=== PATIENT | male | born 1980 | race Caucasian/White ===

== ENCOUNTER 2017-02-15 06:00 | Inpatient (IN) | payer OTHER ==
--- NOTE | 2016-02-17 14:30 | NUR ---
ANNIE CHAVIS NO ORDER CHANGED.
[2017-02-15] VITALS (8 sets, daily range): BP systolic 91–155; BP diastolic 32–77
[~2017-02-15] VITALS: Ht 170.2 cm; Wt 113.9 kg
[~2017-02-15 06:00] MED LIST: ASPIRIN81 M1 PO; COREG3.125 MG PO; DIGOXIN0.125 MG PO; LASIX40 MG PO; SPIRONOLACTONE25 M1 PO; ZESTRIL10 MG PO
--- NOTE | 2017-02-15 06:00 | NUR ---
Dr. Panda at bedside to evalute patient.
--- NOTE | 2017-02-15 06:00 | NUR ---
Patient was BIBA at this time and taken to bed 03 via gurney per EMS.
[2017-02-15] MEDS ORDERED: AMIODARONE 150 MG/3 ML VIAL IV ONE (06:19)
--- NOTE | 2017-02-15 06:31 | NUR ---
BIB PARAMEDICS, RUN #152 FOR HR>200, ADENOSINE GIVEN IN THE FIELD OF 6MG, 12MG AND 12MG. 400NS GIVEN IN THE FIELD. DEFIB OF 100J IN THE FIELD AND 100 J ONE IN THE ER. HR IN THE FIELD RANGED FROM 160 TO 260. ONCE IN THE ER, HR WENT RANGE FROM 200 TO 110 RANGE. PT HAS HX OF HTN, ENLARGED HEART AND SVT. PT DENIES N/V/D; SKIN IS PINK/WARM/DRY; AAOX4 WITH EVEN AND STEADY GAIT; LUNGS CLEAR BL; PT DENIES ANY FEVER, SOB, OR COUGH AT THIS TIME; PATIENT STATES PAIN OF 8/10 AT THIS TIME; PATIENT POSITIONED FOR COMFORT; HOB ELEVATED; BEDRAILS UP X2; BED DOWN. ER MD MADE AWARE OF PT STATUS.
[2017-02-15] MEDS ORDERED: AMIODARONE 150 MG in DEXTROSE 5% 100 ML IV ONE (06:35)
[2017-02-15] MEDS ORDERED: COUMADIN2.5 MG PO (06:39)
[2017-02-15] MEDS ORDERED: LASIX40 MG PO (06:39)
[2017-02-15] MEDS ORDERED: COREG25 MG PO (06:39)
[2017-02-15] MEDS ORDERED: LANOXIN0.125 MG PO (06:39)
[2017-02-15] MEDS ORDERED: FUROSEMIDE 40 MG/4 ML VIAL IVP SCH (07:44)
[2017-02-15] MEDS ORDERED: ONDANSETRON 4 MG/2 ML VIAL IVP PRN (07:45)
[2017-02-15] MEDS ORDERED: MORPHINE SULFATE 4 MG/ML SYR IVP PRN (07:45)
[2017-02-15] MEDS ORDERED: MORPHINE SULFATE 2 MG/ML SYR IVP PRN (07:45)
[2017-02-15] MEDS ORDERED: FUROSEMIDE 40 MG/4 ML VIAL IVP ONE (07:48)
--- NOTE | 2017-02-15 08:00 | NUR ---
Patient appears to be resting comfortably in bed. Vital Signs within normal limits. Respirations even and unlabored.
--- NOTE | 2017-02-15 08:15 | NUR ---
AWAITING FOR CARD ROOM MANAGER NURSE PRIOR TO ADMISSION
--- NOTE | 2017-02-15 09:46 | NUR ---
Patient appears to be resting comfortably in bed. Vital Signs within normal limits. Respirations even and unlabored.
--- NOTE | 2017-02-15 10:04 | NUR ---
Patient will be admitted to care of DR LEUNG. Admited to ICU. Will go to room ICU3. Belongings list completed. Report to MATT.
--- NOTE | 2017-02-15 10:15 | NUR ---
ADMITTED A 36 YO MALE FROM HOME WITH CO DEFIBRILLATOR DELIVERING SHOCK AT HOME SO CALLED 911.RIGHT NOW NO CO CHEST PAIN NOR SHORTNESS OF BREATH.ON ROOM AIR SATURATING 94 PERCENT.NSR ON THE MONITOR.RIGHT WRIST 18 GAUGE SALINE LOCK FLUSHABLE AND PATENT.NO SKIN BREAKDOWN.OTILIA AT THE BEDSIDE.WILL MONITOR.
[2017-02-15] MEDS: DIGOXIN 0.125 MG TAB PO SCH (10:29)
[2017-02-15] MEDS: CARVEDILOL 12.5 MG TAB PO SCH (10:30)
[2017-02-15] MEDS: FUROSEMIDE 20 MG/2 ML VIAL IVP SCH ×3 (10:31→16:22)
[2017-02-15] MEDS ORDERED: METOPROLOL 5 MG/5 ML VIAL IVP PRN (11:45)
--- NOTE | 2017-02-15 14:00 | NUR ---
BILATERAL SCD APPLIED.
--- NOTE | 2017-02-15 14:54 | NUR ---
CM NOTE INITIAL REVIEW FAXED TO [facility] / FAX# [phone]
--- NOTE | 2017-02-15 15:20 | NUR ---
DR BURNETTE PAGED REGARDING MAGNESIUM LEVEL 1.2
--- NOTE | 2017-02-15 15:26 | NUR ---
PT IS COMFORTABLE.NO CO PAIN NOR SHORTNESS OF BREATH.NSR ON THE MONITOR.
[2017-02-15] MEDS ORDERED: MAG SULF 2000 MG/WATER PREMIX 50 ML IV SCH (15:37)
--- NOTE | 2017-02-15 15:45 | NUR ---
CALLED [employer] TO REQUEST TO SEND STATISTICAL FINANCIAL ANALYST TO CHECK PACEMAKER/DEFIBRILLATOR.
[2017-02-15] MEDS ORDERED: WARFARIN 2.5 MG TAB PO SCH (17:00)
--- NOTE | 2017-02-15 17:30 | NUR ---
DR BURNETTE AWARE THAT JULIANE CADENA DID NOT SEE THE PATIENT YET.PER MD TALKED TO DR CARDOZO
--- NOTE | 2017-02-15 19:00 | NUR ---
ENDORSED TO QUILL CLEANER THAT [employer] INTERROGATOR MACHINE IS AVAILABLE AND NEED TO CALL [place] WITH NUMBER [phone] TO GUIDE THEM THRU TO CHECK THE DEFIBRILLATOR.
--- NOTE | 2017-02-15 19:29 | NUR ---
RECEIVED REPORT FROM ARTHUR BUTT. PATIENT IS ALERT, AWAKE, AND ORIENTED. PATIENT IS RESTING IN BED WATCHING TV. NO SIGNS OF SOB OR DISTRESS NOTED. VITALS WNL AND PATIENT DENIES PAIN OR DISCOMFORT AT THIS TIME. THERE IS A #18 IN THE PATIENT'S RIGHT WRIST SALINE LOCK. SITE IS DRY AND INTACT. EXPLAINED INDICATIONS AND BENEFITS OF SCDS FOR VTE PROPHYLAXIS. PATIENT VERBALIZED UNDERSTANDING. SCDS IN PLACE. EXPLAINED PLAN OF CARE TO INCLUDE VITALS Q2H, MONITORING, AND SCHEDULED MEDICATION ADMINISTRATION. PATIENT VERBALIZED UNDERSTANDING. HOB AT 30 DEGREES WITH BED IN LOW POSITION FOR SAFETY MEASURES. WILL CONTINUE TO MONITOR PATIENT.
[2017-02-15] MEDS: AMIODARONE 200 MG TAB PO SCH (20:59)
--- NOTE | 2017-02-15 21:00 | NUR ---
TOLERATED DUE MEDICATION. NO SIGNS OF SOB NOTED. HOB AT 30 DEGREES WITH BED IN LOW POSITION. CONTINUE TO MONITOR PATIENT.
--- NOTE | 2017-02-15 23:19 | NUR ---
PATIENT RESTING QUIETLY IN BED WATCHING TV. NO SIGNS OF SOB OR DISTRESS NOTED. PATIENT'S NEEDS MET AT THIS TIME. CONTINUE TO MONITOR PATIENT.
[2017-02-16] VITALS (10 sets, daily range): BP systolic 101–132; BP diastolic 40–84
--- NOTE | 2017-02-16 02:26 | NUR ---
PATIENT SLEEPING IN BED. BREATHING IS EVEN AND UNLABORED. CONTINUE TO MONITOR PATIENT.
--- NOTE | 2017-02-16 05:26 | NUR ---
MAJOR ACCOUNT REPRESENTATIVE AT BEDSIDE FOR SCHEDULED LAB DRAWS.
--- NOTE | 2017-02-16 07:10 | NUR ---
PATIENT IN STABLE CONDITION. ALL NEEDS ATTENDED TO DURING SHIFT. ENDORSED CONTINUITY OF CARE TO SUCHADA RN.
--- NOTE | 2017-02-16 07:15 | NUR ---
RECEIVE REPORT FROM HOLLAND BRITTON PT IS SITTING IN BED , AAOX4 SKIN DRY WARM TO TOUCH COLOR NORMAL AND SKIN IS INTACT. HE IS ON ROOM AIR O2 SAT 90% , IV SITE HE HAS # 19 ON RT WRIST THE SITE IS DRY AND INTACT DENIED PAIN AT THE TIME.
[2017-02-16] MEDS: FUROSEMIDE 20 MG/2 ML VIAL IVP SCH ×2 (08:15→17:43)
--- NOTE | 2017-02-16 08:15 | NUR ---
RESTING COMFORTABLE DENIED CHEST PAIN AND .
--- NOTE | 2017-02-16 08:15 | NUR ---
C/O FEELING HEART PALPITATION. PATIENT DENIES PAIN OR S.O.B.PT. IS DUE FOR HIS CARDIAC MEDICATION.
[2017-02-16] MEDS: CARVEDILOL 12.5 MG TAB PO SCH ×2 (08:16→20:48)
[2017-02-16] MEDS: AMIODARONE 200 MG TAB PO SCH ×2 (08:16→20:48)
[2017-02-16] MEDS: DIGOXIN 0.125 MG TAB PO SCH (08:16)
--- NOTE | 2017-02-16 08:16 | NUR ---
MORNING MED GIVEN.
[2017-02-16] MEDS ORDERED: PROBIOTIC SCREEN 1 EA MISC MC PRN (10:20)
[2017-02-16] MEDS ORDERED: CARVEDILOL12.5 MG PO (11:18)
[2017-02-16] MEDS ORDERED: PACERONE200 M1 PO (11:18)
--- NOTE | 2017-02-16 11:18 | NUR ---
SEEN BY DR. LEUNG AT BEDSIDE, ORDER RECEIVED.
--- NOTE | 2017-02-16 11:57 | NUR ---
FAXED CONCURRENT REVIEW TO [facility] [phone] PHONE [phone] TRACEY
--- NOTE | 2017-02-16 12:50 | NUR ---
SEEN BY DR. LEUNG AT BEDSIDE.ORDER RECEIVED.
--- NOTE | 2017-02-16 14:30 | NUR ---
CALL TELE REPORT GIVE EUNICE BUTT.
--- NOTE | 2017-02-16 14:30 | NUR ---
SEEN BY DR. CHAVIS , NO ORDER CHANGED.
--- NOTE | 2017-02-16 14:52 | NUR ---
PT TRANSFER TO RM 112A IN BED HIS CONDITION IS STABLEDURING TRANSFER,
--- NOTE | 2017-02-16 15:07 | NUR ---
PATIENT ARRIVED TO THE UNIT FROM ICU. PATIENT AWAKE, ALERT, ORIENTED AND AMBULATORY. NO S/S OF DISTRESS NOTED. NO C/O OF PAIN. PATIENT PLACED ON TELE MONITORING. BED LOWERED WITH CALL LIGHT WITHIN REACH. WILL CONTINUE TO MONITOR
--- NOTE | 2017-02-16 16:30 | NUR ---
PATIENT AMBULATED AROUND THE UNIT NO S/S OF DISTRESS NOTED
--- NOTE | 2017-02-16 19:30 | NUR ---
PATIENT REPORT GIVEN AT BEDSIDE. PATIENT ENDORSED IN STABLE CONDITION
--- NOTE | 2017-02-16 19:45 | NUR ---
RECEIVED PT IN STABLE CONDITION FROM AM NURSE. AWAKE,ALERT AND ORIENTED X4. ON TELE MONITOR. NO DISTRESS NOTED. WITH FAMILY AT BEDSIDE. HL ON THE RT WRIST #18. CLEAR AND PATENT. PLAN OF CARE DISCUSSED AND VERBALIZED UNDERSTANDING. CALL LIGHT WITHIN EASY REACH.WILL CONTINUE TO MONITOR.
--- NOTE | 2017-02-16 21:00 | NUR ---
PT ASLEEP. NO S/S OF ANY DISCOMFORT NOR PAIN NOTED.
--- NOTE | 2017-02-17 02:52 | NUR ---
PT AWAKE, C/O NAUSEA AND VOMITING. MEDICATED ORDERED.
[2017-02-17 04:20] VITALS: BP 124/57
--- NOTE | 2017-02-17 05:00 | NUR ---
SLEEPING WELL AT THIS TIME. NO S/S OF ANY DISCOMFORT NOTED.
--- NOTE | 2017-02-17 07:25 | NUR ---
RECEIVED REPORT FROM NIGHT NURSE. PT IS AAOX4, ON ROOM AIR, IV TO TIGHT WRIST SALINE LOCK PATENT AND INTACT. SKIN INTACT. INITIAL ASSESSMENT COMPLETED. REVIEWED PLAN OF CARE WITH PT, PT VERBALIZED UNDERSTANDING. ALL SAFETY PRECAUTIONS MET. CALL LIGHT WITHIN REACH. WILL CONTINUE TO MONITOR.
--- NOTE | 2017-02-17 07:30 | NUR ---
ENDORSED PT IN STABLE CONDITION TO AM NURSE.
[2017-02-17 07:59] VITALS: BP 119/57
[2017-02-17] MEDS: FUROSEMIDE 20 MG/2 ML VIAL IVP SCH (09:58)
[2017-02-17] MEDS: AMIODARONE 200 MG TAB PO SCH (09:59)
[2017-02-17] MEDS: DIGOXIN 0.125 MG TAB PO SCH (09:59)
[2017-02-17] MEDS: CARVEDILOL 12.5 MG TAB PO SCH (09:59)
--- NOTE | 2017-02-17 10:00 | NUR ---
DUE MEDICATIONS GIVEN. PT TOLERATED WELL. CURRENTLY RESTING IN BED. ALL NEEDS MET CALL LIGHT WITHIN [facility]. WILL CONTINUE TO MONITOR.
[2017-02-17] MEDS ORDERED: XARELTO15 MG PO (10:59)
[2017-02-17 11:52] VITALS: BP 107/57
--- NOTE | 2017-02-17 12:11 | NUR ---
CM NOTE FAXED CONCURRENT REVIEW TO [facility] [phone] PHONE [phone] [phone] CEIHP
--- NOTE | 2017-02-17 12:42 | NUR ---
DISCUSSED DISCHARGE PLAN WITH PT, PT VERBALIZED UNDERSTANDING. ALL NEEDS MET. CALL LIGHT WITHIN REACH.
--- NOTE | 2017-02-17 13:00 | NUR ---
PT SIGNED ALL DISCHARGE PAPERWORK, DISCHARGE INSTRUCTION, EDUCATION, PRESCRIPTION GIVEN. FOLLOW UP INFORMATION GIVEN PT VERBALIZED UNDERSTANDING. IV REMOVED TIP INTACT. ALL PERSONAL BELONGINGS WITH PT. AT BEDSIDE.
--- NOTE | 2017-02-17 13:10 | NUR ---
PT WAS WALKED OUT TO FRONT LOBBY IN STABLE CONDITIONS.
== END 2017-02-17 13:10 | disposition home or self-care (01) | DRG 201 ==
LOC: MED 06:00 → MIC 07:49 → MTU 02-16 14:52
PROVIDERS: ADMIT Internal Medicine Pulmonary Disease; ATTEND Internal Medicine Pulmonary Disease
PROC: 5A2204Z Restoration of Cardiac Rhythm, Single (ICD-10-PCS; principal; 2017-02-16)
DX: I47.1 Supraventricular tachycardia (principal); J96.01 Acute respiratory failure with hypoxia; I49.01 Ventricular fibrillation; E66.9 Obesity, unspecified; I11.0 Hypertensive heart disease with heart failure; I50.23 Acute on chronic systolic (congestive) heart failure; I42.8 Other cardiomyopathies; I47.2 Ventricular tachycardia; Z86.718 Personal history of other venous thrombosis and embolism; Z95.810 Presence of automatic (implantable) cardiac defibrillator; Z79.01 Long term (current) use of anticoagulants; Z68.39 Body mass index [BMI] 39.0-39.9, adult

== ENCOUNTER 2017-02-17 22:38 | Emergency (ER) | payer OTHER ==
[~2017-02-17] VITALS: Ht 170.2 cm; Wt 113.9 kg
[~2017-02-17 22:38] MED LIST changes: +AMIO200T10 PO; -ASPIRIN81 M1 PO; +CARV12.52 PO; -COREG3.125 MG PO; +DIGO0.121 PO; -DIGOXIN0.125 MG PO; +FURO-570 PO; -LASIX40 MG PO; +RIVA15TA1 PO; -SPIRONOLACTONE25 M1 PO; -ZESTRIL10 MG PO
[2017-02-17 22:39] VITALS: BP 152/89
--- NOTE | 2017-02-17 22:52 | NUR ---
Pt upset that we would not take him back immediately after triage to a bed. Pt verbally abusive to staff, as was his . Pt stormed out of ER. PATIENT LEFT WITHOUT BEING SEEN BY DR. Higuera. NO FURTHER CARE PROVIDED FOR PATIENT.
--- NOTE | 2017-02-17 22:53 | NUR ---
Nikita yoon in [facility] - 02/17/17 at 2305 by ANNA Patient to bed .
[2017-02-17] MEDS ORDERED: NITROGLYCERIN 2% 1 GM PKT TP ONE (22:55)
[2017-02-17] MEDS ORDERED: MORPHINE SULFATE 4 MG/ML SYR IVP ONE (22:55)
[2017-02-17] MEDS ORDERED: ASPIRIN 325 MG TAB PO ONE (22:55)
== END 2017-02-17 22:52 | disposition left against medical advice (07) ==
LOC: MED 22:38
DX: R42 Dizziness and giddiness (principal); R53.1 Weakness; Z53.21 Procedure and treatment not carried out due to patient leaving prior to being seen by health care provider
CPT/HCPCS: 99281

== ENCOUNTER 2017-10-11 17:37 | Inpatient (IN) | payer OTHER ==
[~2017-10-11] VITALS: Ht 170.2 cm; Wt 136.1 kg
[2017-10-11 17:39] VITALS: BP 149/72
--- NOTE | 2017-10-11 17:40 | NUR ---
36 M BIBA FROM HOME FOR EVALUATION OF SOB X2 DAYS W/LAST 45 MINUTES BECOMING INCREASINGLY SEVERE; RR ARE TACHYPENIC AND LABORED; PULSE OX=80% ON RA; RT SPEAKING IN ONE WORDED PHRASES; PT WITH PINK FROTHY SPUTUM; PT IS AOX4; ER MD CUELLO BY BEDSIDE; RT BY BEDSIDE; WILL CONTINUE TO MONITOR.
[2017-10-11] MEDS ORDERED: FUROSEMIDE 40 MG/4 ML VIAL IVP ONE ×2 (17:45→18:30)
[2017-10-11] MEDS ORDERED: ALBUTEROL SULFATE/IPRATROPIU 3 ML SOL IH ONE ×2 (17:45)
--- NOTE | 2017-10-11 18:00 | NUR ---
ABG RESULTS GIVEN TO . PHYSICIAN REQUESTS PT BE PLACED ON BIPAP. BIPAP PLACED ON PT. BRAID PATTERN SETTER [facility].
--- NOTE | 2017-10-11 18:24 | NUR ---
LAB BY BEDSIDE
[2017-10-11 18:42] VITALS: BP 139/81
[2017-10-11 18:42] LABS: BASOPHILS # (AUTO) 0.4 K/uL (0.00-0.22); EOSINOPHILS # (AUTO) 0.1 K/uL (0-0.4); HEMATOCRIT 51.8 % (36-52); HEMOGLOBIN 12.9 g/dL (12.0-18.0); LYMPHOCYTES # (AUTO) 0.8 K/uL (2.0-11.5); MEAN CORPUSCULAR HEMOGLOBIN 21 pg (27-31); MEAN CORPUSCULAR HGB CONC 25 g/dL (33-37); MEAN CORPUSCULAR VOLUME 84 fL (80-94); MONOCYTES # (AUTO) 0.8 K/uL (0.8-1.0); NEUTROPHILS # (AUTO) 7.8 K/uL (1.8-7.7); PLATELET COUNT (AUTO) 222 K/uL (140-450); RED BLOOD CELL COUNT(AUTO) 6.19 MIL/uL (4.20-6.10); RED CELL DISTRIBUTION WIDTH 15.1 % (11.6-13.7); WHITE BLOOD COUNT (AUTO) 9.9 K/uL (4.8-10.8)
--- NOTE | 2017-10-11 18:43 | NUR ---
RESP STATUS IMPROVED; PULSE OX=95% ON IPAP; NAD; PT DENIES ANY CP AT THIS TIME. WILL CONTINUE TO MONITOR.
[2017-10-11 18:58] LABS: ANION GAP 15.3 (8-16); CARBON DIOXIDE 24.2 mmol/L (21-32); CREATININE 2.5 mg/dL (0.7-1.3); POTASSIUM 4.5 mmol/L (3.5-5.1)
[2017-10-11 19:03] LABS: TOTAL BILIRUBIN 0.4 mg/dL (0.0-1.0)
[2017-10-11 19:07] LABS: PROTHROMBIN TIME 12.2 secs (10.8-13.4)
--- NOTE | 2017-10-11 19:15 | NUR ---
pt doesn't know frequency, dose on home medication; pt sts he normally takes "digoxin, xeralto, metroplol, Isosorbide, hydrolazine, unknown other bp med"; pt sts will be bringing med list later on.
--- NOTE | 2017-10-11 19:22 | NUR ---
Pt report given to Bettie BUTT. Transfer of care at this time.
--- NOTE | 2017-10-11 20:10 | NUR ---
TRANSFERRED PT TO ICU5 WITH NO INCIDENCE WITH MARIA M BUTT
[2017-10-11 20:12] VITALS: BP 144/79
--- NOTE | 2017-10-11 20:12 | NUR ---
RECEIVED PT TRANSFERRED FORM ER, OBTAINED REPORT AT BEDSIDE, PT IS AAOX4, ABLE TO FOLLOW COMMANDS AND MAKE NEEDS KNOWN, NO S/S OF DISTRESS, CLEAR LUNG SOUNDS, ON BIPAP WITH I/E /, RATE 12, FIO2 100%. DENIES CHEST PAIN, SR WITH PACING RHYTHM, PACEMAKER ON LEFT UPPER CHEST, LARGE ROUND SOFT ABDOMEN WITH ACTIVE BOWEL SOUNDS, NO C/O N/V, CONTINENT WITH B&b'S, ABLE TO MOVE ALL EXTREMITIES, STEADY GAIT. AFEBRILE, SKIN IS INTACT, WARM AND DRY TO TOUCH, PERIPHERAL LINE TO RIGHT WRIST 20GA AND LEFT AC 20GA, PATENT AND SL. VSS, DENIES PAIN A THIS TIME. EXPLAINED POC TO PT AND FAMILY MEMBER, VERBALIZED UNDERSTANDING, HOB ELEVATED TO 30 DEGREES, SAFETY MEASURES IN PLACE, WILL CONTINUE TO MONITOR.
--- NOTE | 2017-10-11 20:21 | NUR ---
Patient will be admitted to care of DR MARTÍNEZ. Admited to TELE . Will go to room 5. Belongings list completed. Report to HAROON . Addendum: 10/12/17 at 0338 by MARGIE PT ADMITED TO ICU BED 5 NOT TELE.
--- NOTE | 2017-10-11 21:00 | NUR ---
PT REFUSED PAIZ CATHETER INSERTION, EXPLAINED THE BENEFIT AND RISK FOR IT, PT STILL REFUSED.
[2017-10-11] MEDS ORDERED: METO100T14 PO (21:58)
[2017-10-11] MEDS ORDERED: DIGO0.121 PO (21:58)
[2017-10-11] MEDS ORDERED: ISOS10TA9 PO (21:58)
[2017-10-11] MEDS ORDERED: AMIO200T2 PO (21:58)
[2017-10-11] MEDS ORDERED: HYDR-3233 PO (21:58)
[2017-10-11] MEDS ORDERED: FURO-570 PO (21:58)
[2017-10-11 22:00] VITALS: BP 119/40
--- NOTE | 2017-10-11 22:17 | NUR ---
ABG RESULTS REPORTED TO DR MARTÍNEZ, BIPAP TO BE CONTINUED AT THIS TIME AND WILL TITRATE FIO2 TOLERATED, WILL CONT TO MONITOR.
[2017-10-11] MEDS ORDERED: METO100T22 PO (22:42)
[2017-10-11 22:50] LABS: APPEARANCE,URINE CLEAR (CLEAR); BILIRUBIN,URINE NEGATIVE (NEGATIVE); BLOOD, URINE NEGATIVE (NEGATIVE); COLOR,URINE YELLOW (YELLOW); LEUKOCYTE ESTERASE ,URINE NEGATIVE (NEGATIVE); NITRITE, URINE NEGATIVE (NEGATIVE); UGLUCOSE NEGATIVE (NEGATIVE)
--- NOTE | 2017-10-11 23:30 | NUR ---
PT REQUESTED TO TAKE A BREAK FROM THE BIPAP, STATES HE'S FEELING BETTER AND CAN BREATHE BETTER, PLACED ON 12 LPM OXYMIZER WITH O2 SAT 93%, TOLERATING WELL, NO RESP DISTRESS OR SOB NOTED AT THIS TIME, HAROON BUTT AWARE, EDUCATED PT TO USE CALL LIGHT, WILL CONTINUE TO MONITOR.
[2017-10-11] MEDS: FUROSEMIDE 40 MG/4 ML VIAL IVP SCH (23:55)
[2017-10-12] VITALS (12 sets, daily range): BP systolic 101–159; BP diastolic 43–102
--- NOTE | 2017-10-12 | NUR ---
PT IS REST IN BED, NO S/S OF DISTRESS, DENIES CHEST PAIN, ON OXYMIZER, VSS.
[2017-10-12] MEDS ORDERED: ALBUTEROL SULFATE/IPRATROPIU 3 ML SOL IH PRN (00:05)
[2017-10-12 02:54] LABS: CREATINE KINASE MB 1.5 ng/mL (0-3.6)
[2017-10-12] MEDS ORDERED: hePARIN / DEXT 5% PREMIX 250 ML IV SCH (03:25)
--- NOTE | 2017-10-12 04:00 | NUR ---
PT REFUSED AM CARE, STATED WILL DO IT LATER.
[2017-10-12] MEDS ORDERED: HEPARIN PER PHARMACY MC PRN (04:15)
[2017-10-12] MEDS: ASPIRIN 81 MG TAB.CHEW PO SCH ×2 (04:17→08:16)
[2017-10-12] MEDS: hePARIN / DEXT 5% PREMIX 250 ML IV SCH (04:21)
[2017-10-12] MEDS ORDERED: ASPIRIN 81 MG TAB.CHEW ONE (04:22)
[2017-10-12 05:17] LABS: HEMATOCRIT 46.7 % (36-52); HEMOGLOBIN 15.3 g/dL (12.0-18.0); MEAN CORPUSCULAR HEMOGLOBIN 27 pg (27-31); MEAN CORPUSCULAR HGB CONC 33 g/dL (33-37); MEAN CORPUSCULAR VOLUME 83 fL (80-94); PLATELET COUNT (AUTO) 220 K/uL (140-450); RED BLOOD CELL COUNT(AUTO) 5.62 MIL/uL (4.20-6.10); RED CELL DISTRIBUTION WIDTH 15.2 % (11.6-13.7); WHITE BLOOD COUNT (AUTO) 21.8 K/uL (4.8-10.8)
[2017-10-12] MEDS: FUROSEMIDE 40 MG/4 ML VIAL IVP SCH ×3 (05:53→20:49)
[2017-10-12 06:19] LABS: LYMPHOCYTES % (MANUAL) 7 % (20-46); MONOCYTES % (MANUAL) 4 % (5-12)
[2017-10-12] MEDS: ALBUTEROL SULFATE/IPRATROPIU 3 ML SOL IH SCH ×3 (06:38→19:22)
--- NOTE | 2017-10-12 06:38 | NUR ---
NO HHN GIVEN WOKE PT UP HE STATED HE WANTED TO SLEEP PT HAS NO DISTRESS NOTED AT THIS TIME
[2017-10-12 06:40] LABS: ANION GAP 15.1 (8-16); CREATININE 2.6 mg/dL (0.7-1.3); POTASSIUM 4.1 mmol/L (3.5-5.1)
--- NOTE | 2017-10-12 07:25 | NUR ---
REPORT GIVEN TO FILOMENA BOYKIN AND SELINA RN AT BEDSIDE FOR CONTINUE OF CARE, PT IS IN STABLE CONDITION.
--- NOTE | 2017-10-12 07:30 | NUR ---
RECEIVED REPORT FROM NOC SHIFT RN. PT RESTING IN BED AWAKE. SR ON MONITOR. ON OXYGEN 8 L/MIN. SKIN DRY AND WARM TO TOUCH. PUPILS REACTIVE TO LIGHT. LUNGS SOUND CLEAR ON AUSCULTATION. S/P SURGICAL SCAR NOTED ON LEFT UPPER CHEST. PERIPHERAL LINE OMM RIGHT HAND 20 G AND LEFT AC 20 G. ABDOMEN ROUND, SOFT AND NONTENDER. BOWEL SOUND PRESENT IN ALL FOUR QUADRANTS. SCDS ON BLE. WILL CONTINUE TO MONITOR.
--- NOTE | 2017-10-12 07:35 | NUR ---
CHEST X-RAY DONE. WILL FOLLOW UP ON RESULT.
[2017-10-12] MEDS: METOPROLOL 50 MG TAB PO SCH ×2 (08:15→20:49)
[2017-10-12] MEDS: AMIODARONE 200 MG TAB PO SCH ×2 (08:17→20:49)
[2017-10-12] MEDS: ISOSORBIDE DINITRATE 10 MG TAB PO SCH ×3 (08:18→16:34)
--- NOTE | 2017-10-12 08:26 | NUR ---
ASSISTED IN MORNING CARE. PT RESTING IN BED COMFORTABLY. NO CHANGE IN LOC. WILL CONTINUE TO MONITOR.
[2017-10-12] MEDS ORDERED: ENOXAPARIN 40 MG/0.4 ML SYR SUBQ SCH (09:00)
[2017-10-12] MEDS ORDERED: hydrALAZINE 10 MG TAB PO SCH (09:00)
--- NOTE | 2017-10-12 09:45 | NUR ---
DR. COMER IN TO SEE THE PT. WILL FOLLOW UP ON ORDER.
--- NOTE | 2017-10-12 09:51 | NUR ---
PATIENT HAS BEEN SCREENED AND CATEGORIZED HIGH NUTRITION RISK. PATIENT WILL BE SEEN WITHIN 1-2 DAYS OF ADMISSION. 10/12/17-10/13/[address]
--- NOTE | 2017-10-12 11:13 | NUR ---
CM NOTE INITIAL REVIEW FAXED TO [facility] [phone] [employer] # [phone]
--- NOTE | 2017-10-12 11:14 | NUR ---
PT RESTING IN BED COMFORTABLY. NO CHANGE IN LOC. AT BEDSIDE. WILL CONTINUE TO MONITOR.
[2017-10-12 11:40] LABS: CREATINE KINASE MB 1.8 ng/mL (0-3.6)
[2017-10-12 11:50] LABS: PROTHROMBIN TIME 11.5 secs (10.8-13.4)
--- NOTE | 2017-10-12 12:15 | NUR ---
PT SEEN BY DR. RANDHAWA. WILL FOLLOW UP ON ORDER.
--- NOTE | 2017-10-12 12:35 | NUR ---
PT COUGH UP SMALL BLOOD CLOT. DR COMER MADE AWARE. ALSO REPORTED THE LAB RESULT. ORDERED TO CONTINUE HEPARIN DRIP.
--- NOTE | 2017-10-12 13:05 | NUR ---
PT RESTING IN BED COMFORTABLY. AT BED SIDE. NO CHANGE IN LOC. WILL CONTINUE TO MONITOR.
--- NOTE | 2017-10-12 13:21 | NUR ---
FAMILY AT BEDSIDE PT REFUSED TX WANTS TO USE BATHROOM NO SIGNS OF DISTRESS NOTED AT THIS TIME
--- NOTE | 2017-10-12 14:57 | NUR ---
PT RESTING IN BED. AT BEDSIDE. NO CHANGE IN LOC. WILL CONTINUE TO MONITOR.
--- NOTE | 2017-10-12 18:34 | NUR ---
PT IN BED, EATING DINNER. NO CHANGE IN CONDITION. AT BEDSIDE. WILL CONTINUE TO MONITOR.
--- NOTE | 2017-10-12 19:20 | NUR ---
GAVE REPORT TO NOC SHIFT RN FOR CONTINUITY OF CARE. PT RESTING IN BED, IN STABLE CONDITION. AT BED SIDE.
--- NOTE | 2017-10-12 19:21 | NUR ---
RECEIVED REPORT FROM FILOMENA MARKS AT BEDSIDE, PT IS AAOX4, ABLE TO FOLLOW COMMANDS AND MAKE NEEDS KNOWN, NO S/S OF DISTRESS, WHEEZING LUNG SOUNDS TO RFL, CRACKLES TO BLL, ON OXYMIZER WITH O2 AT 8 L/MIN. DENIES CHEST PAIN, SR WITH PACING RHYTHM, PACEMAKER ON LEFT UPPER CHEST, LARGE ROUND SOFT ABDOMEN WITH ACTIVE BOWEL SOUNDS, NO C/O N/V, CONTINENT WITH B&B'S, ABLE TO MOVE ALL EXTREMITIES, STEADY GAIT. AFEBRILE, SKIN IS INTACT, WARM AND DRY TO TOUCH, PERIPHERAL LINE TO RIGHT WRIST 20GA, PATENT AND SL, LEFT AC 20GA, RUNNING WITH HEPARIN DRIP AT 1100 UNITS/HR. VSS, DENIES PAIN. FAMILY MEMBERS AT BEDSIDE AT THIS TIME, HOB ELEVATED TO 30 DEGREES, SAFETY MEASURES IN PLACE, CALL LIGHT WITHIN REACH, WILL CONTINUE TO MONITOR.
--- NOTE | 2017-10-12 20:20 | NUR ---
PTT RESULT IS 49.4, NO CHANGE OF DOSAGE FOR HEPARIN DRIP AT THIS TIME.
[2017-10-12] MEDS: POTASSIUM CHLORIDE 8 MEQ TABER PO SCH (20:49)
[2017-10-13] VITALS (8 sets, daily range): BP systolic 89–122; BP diastolic 47–84
--- NOTE | 2017-10-13 | NUR ---
NO S/S OF DISTRESS, VSS, DENIES PAIN.
[2017-10-13] MEDS: hePARIN / DEXT 5% PREMIX 250 ML IV SCH (03:15)
--- NOTE | 2017-10-13 04:00 | NUR ---
NO CHANGE OF CONDITION, PT IS RESTING IN BED, VSS, STILL ON HEPARIN DRIP, TOLERATED WELL.
[2017-10-13] MEDS: FUROSEMIDE 40 MG/4 ML VIAL IVP SCH ×2 (04:51→13:00)
[2017-10-13 05:25] LABS: BASOPHILS # (AUTO) 0.1 K/uL (0.00-0.22); BASOPHILS % (AUTO) 1.1 % (0.0-2.0); EOSINOPHILS # (AUTO) 0.1 K/uL (0-0.4); HEMATOCRIT 44.7 % (36-52); HEMOGLOBIN 14.4 g/dL (12.0-18.0); LYMPHOCYTES # (AUTO) 1.5 K/uL (2.0-11.5); LYMPHOCYTES % (AUTO) 12.3 % (20.5-51.1); MEAN CORPUSCULAR HEMOGLOBIN 27 pg (27-31); MEAN CORPUSCULAR HGB CONC 32 g/dL (33-37); MEAN CORPUSCULAR VOLUME 83 fL (80-94); MONOCYTES # (AUTO) 0.9 K/uL (0.8-1.0); MONOCYTES % (AUTO) 7.5 % (1.7-9.3); NEUTROPHILS # (AUTO) 9.8 K/uL (1.8-7.7); NEUTROPHILS % (AUTO) 78.1 % (42.2-75.2); PLATELET COUNT (AUTO) 184 K/uL (140-450); RED BLOOD CELL COUNT(AUTO) 5.38 MIL/uL (4.20-6.10); RED CELL DISTRIBUTION WIDTH 15.1 % (11.6-13.7); WHITE BLOOD COUNT (AUTO) 12.4 K/uL (4.8-10.8)
[2017-10-13 05:47] LABS: PROTHROMBIN TIME 10.8 secs (10.8-13.4)
[2017-10-13 05:52] LABS: CARBON DIOXIDE 25.8 mmol/L (21-32); CREATININE 2.4 mg/dL (0.7-1.3); POTASSIUM 3.8 mmol/L (3.5-5.1)
--- NOTE | 2017-10-13 06:32 | NUR ---
PTT RESULT 52.1, PER HEPARIN DRIP PROTOCOL, NO CHANGE OF DOSAGE AT THIS TIME.
--- NOTE | 2017-10-13 07:19 | NUR ---
REPORT GIVEN TO FILOMENA MARKS AT BEDSIDE FOR CONTINUE OF CARE, PT IS IN STABLE CONDITION AT THIS TIME. CAROLAS
--- NOTE | 2017-10-13 07:20 | NUR ---
RECEIVED REPORT FROM NOC SHIFT RN. PT RESTING IN BED AWAKE. SR PACED ON MONITOR. NO ACUTE DISTRESS. SKIN DRY AND WARM TO TOUCH. PUPILS REACTIVE TO LIGHT. LUNGS SOUND CLEAR ON AUSCULTATION. RIGHT HAND PERIPHERAL LINE 20G AND LEFT AC 20 G INTACT. ABDOMEN ROUND AND SOFT. BOWEL SOUNDS PRESENT ON ALL FOUR QUADRANTS. CONTINENT TO B/B. SCDS ON BLES. WILL CONTINUE TO MONITOR.
[2017-10-13] MEDS: ALBUTEROL SULFATE/IPRATROPIU 3 ML SOL IH SCH ×2 (08:03→13:57)
[2017-10-13] MEDS: ASPIRIN 81 MG TAB.CHEW PO SCH (08:57)
[2017-10-13] MEDS: ISOSORBIDE DINITRATE 10 MG TAB PO SCH ×2 (08:57→13:00)
[2017-10-13] MEDS: AMIODARONE 200 MG TAB PO SCH (08:57)
[2017-10-13] MEDS: METOPROLOL 50 MG TAB PO SCH (08:57)
[2017-10-13] MEDS: POTASSIUM CHLORIDE 8 MEQ TABER PO SCH (08:58)
--- NOTE | 2017-10-13 10:23 | NUR ---
PT RESTING IN BED COMFORTABLY. NO C/O CHEST PAIN AT THIS TIME. NO ACUTE DISTRESS NOTED. WILL CONTINUE TO MONITOR.
[2017-10-13] MEDS ORDERED: PROBIOTIC SCREEN 1 EA MISC MC PRN (10:40)
--- NOTE | 2017-10-13 12:29 | NUR ---
CM NOTE CONCURRENT REVIEW FAXED TO [facility] [phone] [employer] # [phone]
--- NOTE | 2017-10-13 13:00 | NUR ---
LASIX AND ISODRIL NOT GIVEN PER DR. COMER ORDER. PER DR. COMER, PT WILL BE DISCHARGED TO HOME.
--- NOTE | 2017-10-13 13:07 | NUR ---
10/13/17 RD INITIAL ASSESSMENT COMPLETED PLEASE REFER TO NUTRITION ASSESSMENT UNDER CARE ACTIVITY FOR ESTIMATED NUTRITIONAL NEEDS. 1. CONTINUE CARDIAC DIET TOLERATED. -DIET APPROPRIATE FOR MEDICAL CONDITION/HISTORY 2. PT WITH LOWERED PROTEIN NEEDS D/T CHRONIC KIDNEY DISEASE STAGE III -NOTE PT MEETING 100% OF ESTIMATED NEEDS WITH CURRENT PO INTAKE 3. RD TO FOLLOW-UP 3-5 DAYS, MODERATE RISK CHRISTI DEVLIN, YOJANA
[2017-10-13] MEDS ORDERED: MAG SULF 2000 MG/WATER PREMIX 50 ML IV SCH (13:15)
--- NOTE | 2017-10-13 15:30 | NUR ---
PT AWAKE ALERT AND ORIENTED. NO S/S OF RESPIRATORY DISTRESS NOTED. DISCHARGE INSTRUCTION GIVEN, PT VERBALIZED UNDERSTANDING. ALL THE NEEDED PAPERS HANDED TO PT. PT LEFT WITH ON STABLE CONDITION. Addendum: 10/13/17 at 1614 by Randee Miller RN ALL THE PERSONNAL BELONGINGS WITH THE PT. IV REMOVED. ARM BAND REMOVED. EDUCATED PT TO VISIT PCP IN 1 WEEK AND COME BACK TO HOSPITAL IF ANY DISCOMFORT OCCUR. WHEELCHAIRED PT TO LOBBY. PT ON STABLE CONDITION.
== END 2017-10-13 15:30 | disposition home or self-care (01) | DRG 133 ==
LOC: EDBD 17:37 → MED 17:37 → EDSEX 17:37 → MIC 19:54 → MERGE 19:54 → MIC 22:45
PROVIDERS: ADMIT Internal Medicine; ATTEND Internal Medicine
PROC: 5A09357 Assistance with Respiratory Ventilation, Less than 24 Consecutive Hours, Continuous Positive Airway Pressure (ICD-10-PCS; principal; 2017-10-11)
PROC: 06HY33Z Insertion of Infusion Device into Lower Vein, Percutaneous Approach (ICD-10-PCS; 2017-10-11)
DX: J96.01 Acute respiratory failure with hypoxia (principal); I50.23 Acute on chronic systolic (congestive) heart failure; I42.0 Dilated cardiomyopathy; N18.3 Chronic kidney disease, stage 3 (moderate); Z68.42 Body mass index [BMI] 45.0-49.9, adult; I13.0 Hypertensive heart and chronic kidney disease with heart failure and stage 1 through stage 4 chronic kidney disease, or unspecified chronic kidney disease; I49.9 Cardiac arrhythmia, unspecified; R74.8 Abnormal levels of other serum enzymes; E66.9 Obesity, unspecified; R60.9 Edema, unspecified; Z87.891 Personal history of nicotine dependence; Z95.810 Presence of automatic (implantable) cardiac defibrillator; Z79.899 Other long term (current) drug therapy; Z79.01 Long term (current) use of anticoagulants
CPT/HCPCS: 36415; 36556; 36600; 71010; 80048; 80053; 80162; 81003; 82550; 82553; 82803; 83735; 83880; 84484; 85025; 85610; 85730; 87081; 93005; 94640; 94660; 94761; 96374; 96375; 99291; J1644; J1940; J3475; J7620; Q0092